=== PATIENT | male | born 1995 | race Caucasian/White ===

== ENCOUNTER 2016-12-28 06:02 | Emergency (ER) | payer BC ==
[~2016-12-28] VITALS: Ht 185.4 cm; Wt 80.0 kg
[2016-12-28 06:05] VITALS: TEMP 36.8; Ht 185.4 cm; Wt 80.0 kg
[2016-12-28] MEDS ORDERED: OXYC1TAB3 PO (06:25)
[2016-12-28] MEDS ORDERED: OXYCODONE IR HOME PACK PO ONE (06:30)
--- NOTE | 2016-12-28 06:33 | EMERGENCY ROOM VISIT NOTE ---
ED Visit Note First contact with patient: 06:23 CHIEF COMPLAINT: knee pain HISTORY OF PRESENT ILLNESS: This 21 yo patient presents to the emergency department with family after sustaining an injury to the left knee falling on it skateboarding yesterday. The patient denies any other injuries besides their knee. The patient complains of swelling without bruising. There is pain throughout the knee. They rate the pain as throbbing and 6/10. The patient states they are not able to walk on it. No numbness or tingling. No previous injuries to this knee. No ankle, foot or hip pain. Patient also has an abrasion to the knee REVIEW OF SYSTEMS: A 6 system review of systems was completed with positives and pertinent negatives listed in the HPI. ALLERGIES: none MEDICATIONS: none PMH: none SOCIAL HISTORY: No drug use PHYSICAL EXAM: Vital Signs: Reviewed Nurse's notes, vital signs stable. GENERAL : Male, no acute distress, but appears in pain, well-developed, well-nourished. MENTAL STATUS: Alert, oriented to person place and time, and cooperative. MUSCULOSKELETAL: The left knee is is swollen. There is no ecchymosis. There is joint effusion present. The patient is tender over the patella. There is joint line tenderness. The patella not subluxate. Range of motion is limited secondary to pain. Strength of the quads and hamstrings is 4/5. Clarissa's is unable to assess secondary to pain. Michaela's and Anterior Drawer tests are unable to assess secondary to pain The foot and toes are warm and well- perfused. Dorsalis pedis pulse 2+. Sensation to pain and light touch is intact. Capillary refill less than 2 seconds. EMERGENCY DEPARTMENT COURSE: I examined the patient. X-rays of the left knee were reviewed by myself and attending and reveal concerning for patellar fracture. The patient was placed in a knee immobilizer under my direction and the position was satisfactory. The patient was instructed on the use of crutches. He was advised to follow-up with orthopedics as feet for definitive care for his knee injury. He was advised return to the ER immediately for severe pain, numbness, tingling, worsening signs or symptoms or as needed. The patient was discharged home in good condition. DIAGNOSIS: Left Patella fracture, #2 fall, #3 knee abrasion, left DISCHARGE INSTRUCTIONS: as below Current/Historical Medications Scheduled PRN Oxycodone Immediate Rel Tab (Roxicodone Ir), 1-2 TAB PO Q4H PRN for Severe Pain Allergies Coded Allergies: No Known Allergies (Unverified , 11/28/10) Vital Signs Date Time Temp Pulse Resp B/P Pulse Ox O2 Delivery O2 Flow Rate FiO2 12/28/16 06:05 36.8 99 18 123/79 96 Room Air Departure Information Impression Primary Impression: Patella fracture Dispostion Home / Self-Care Condition GOOD Prescriptions Oxycodone Immediate Rel Tab (ROXICODONE IR) 5 Mg Tab 1-2 TAB PO Q4H Y for Severe Pain, #10 TAB Prov: Cece Ruiz ., AKIN 12/28/16 Referrals [facility] MD Forms HOME CARE DOCUMENTATION FORM, School Instructions, Return To School: 2 days Work Instructions, Return To Work: 2 days IMPORTANT VISIT INFORMATION Patient Instructions [facility], ED Fx Patella Additional Instructions Oxycodone (OxyIR) 5mg: Take 1-2 pills every four hours for breakthrough pain. Avoid alcohol, operating machinery or dangerous equipment, working on ladders or roofs, DRIVING, or situations where being under the influence may be dangerous. It is recommended to use an [id number] stool softener such as Colace, 100mg twice daily while taking this medication to avoid constipation. Ibuprofen(Motrin, Advil) may be used for fever or pain. Use 600mg every six hours as needed. Take with food. Avoid using more than 2400mg in a 24 hour period. Do not use 2400mg per day for more than three consecutive days without physician direction. Prolonged inappropriate use can lead to stomach upset or ulcers. This medication can be taken if you need to drive, work, or perform activities which may be dangerous when taking narcotic pain medication. (AND/OR) Acetaminophen(Tylenol) may be used for fever or pain. Use 1000mg every six hours as needed. Avoid using more than 3000mg in a 24 hour period. This medication can be taken if you need to drive, work, or perform activities which may be dangerous when taking narcotic pain medication. Ice compresses for 20 minutes at a time four times daily for 2-3 days. Use the crutches as instructed. Rest and elevate your injury. Wear knee immobilizer. Do not have it so tight that you cannot feel your foot. Continue current medications. Return to the ER immediately for any numbness, tingling, severe pain, extreme swelling in the extremity or as needed. Call Orthopedics tomorrow to arrange follow up for your injury. Work Instructions Return To Work: 2 days School Instructions Return To School: 2 days
[2016-12-28 06:36] VITALS: BP 128/75; PULSE 88; O2SAT 96
--- NOTE | 2016-12-28 07:20 | DIAGNOSTIC IMAGING REPORT ---
LEFT KNEE 3 VIEWS HISTORY: Left knee pain and injury COMPARISON: None. FINDINGS: Vertical fracture to the mid patella. This is nondisplaced. Anterior soft tissue swelling and a large knee effusion. No radiopaque foreign bodies. IMPRESSION: Nondisplaced patellar fracture. Large knee effusion. Electronically signed by: Valente Rolle M.D. 12/28/2016 7:18 AM Dictated Date/Time: 12/28/2016 7:17 AM
== END 2016-12-28 06:40 | disposition home or self-care (01) ==
LOC: C.EDB 06:04 → C.EDA 06:40
DX: S82.002A Unspecified fracture of left patella, initial encounter for closed fracture (principal); S80.212A Abrasion, left knee, initial encounter; W19.XXXA Unspecified fall, initial encounter; Y93.51 Activity, roller skating (inline) and skateboarding